=== PATIENT | female | born 1995 | race Caucasian/White ===

== ENCOUNTER → 2020-11-23 | Outpatient (CLI) | payer OTHER ==
[~2020-11-23] MED LIST: COLACE 100MG C100 MG PO; INDERAL TAB 2020 MG PO; NORCO 7.5-3251 EACH PO; NUVARING VAGIN1 EACH VG; ZOFRAN4 MG PO
== END ==
LOC: LAB 12:50
DX: Z32.01 Encounter for pregnancy test, result positive (principal)
CPT/HCPCS: 84702

== ENCOUNTER 2021-01-14 20:00 | Emergency (ER) | payer OTHER ==
[2021-01-14] MEDS ORDERED: VENTOLIN HFA 66.7 GM INH (20:18)
[2021-01-14] MEDS ORDERED: LODINE CAP 300300 MG PO (20:18)
== END 2021-01-14 20:15 | disposition home or self-care (01) ==
LOC: ER1 20:00
DX: U07.1 COVID-19 (principal); Z90.49 Acquired absence of other specified parts of digestive tract; Z88.0 Allergy status to penicillin
CPT/HCPCS: 0240U; 99283

== ENCOUNTER 2021-01-15 13:07 | Emergency (ER) | payer OTHER ==
[~2021-01-15] VITALS: Ht 162.6 cm; Wt 88.5 kg
[~2021-01-15 13:07] MED LIST changes: +LODINE CAP 300300 MG PO; +VENTOLIN HFA 66.7 GM INH
[2021-01-15 13:51] LABS: HEMOGLOBIN 14.5 gm/dl (12.3-15.3); RED BLOOD COUNT 4.76 M/UL (4.00-5.10); WHITE BLOOD COUNT 5.7 K/UL (4.5-11.0)
[2021-01-15 14:19] LABS: BUN/CREATININE RATIO 17 (0-10)
== END 2021-01-15 20:20 | disposition home or self-care (01) ==
LOC: ER1 13:07
PROVIDERS: Physician Assistant
DX: Z23 Encounter for immunization (principal); U07.1 COVID-19; Z90.49 Acquired absence of other specified parts of digestive tract
CPT/HCPCS: 71045; 80053; 82550; 82553; 83874; 84484; 84702; 85025; 85379; 96374; 99284; J2060; M0243; Q0243; Q9967

== ENCOUNTER → 2021-06-16 | Outpatient (CLI) | payer OTHER | LOC: EROP 15:41 | DX: Z53.9 Procedure and treatment not carried out, unspecified reason (principal) | CPT/HCPCS: 84702 ==

== ENCOUNTER 2021-09-12 20:51 | Emergency (ER) | payer OTHER ==
[2021-09-12 21:47] LABS: HEMOGLOBIN 12.3 gm/dl (12.3-15.3); RED BLOOD COUNT 4.07 M/UL (4.00-5.10)
[2021-09-12 22:01] LABS: BUN/CREATININE RATIO 12 (0-10)
== END 2021-09-13 00:09 | disposition home or self-care (01) ==
LOC: ER1 20:51
PROVIDERS: Physician Assistant
DX: O99.512 Diseases of the respiratory system complicating pregnancy, second trimester (principal); J10.1 Influenza due to other identified influenza virus with other respiratory manifestations; O99.282 Endocrine, nutritional and metabolic diseases complicating pregnancy, second trimester; E87.6 Hypokalemia; Z88.0 Allergy status to penicillin; Z20.822 Contact with and (suspected) exposure to COVID-19; Z3A.16 16 weeks gestation of pregnancy
CPT/HCPCS: 0240U; 71045; 80053; 81001; 85025; 87081; 87086; 87880; 93005; 99284